=== PATIENT | female | born 1940 | race Caucasian/White ===

== ENCOUNTER 2016-09-12 14:59 | Observation (INO) | payer MEDICARE, OTHER ==
[~2016-09-12] VITALS: Ht 165.1 cm; Wt 80.0 kg
[~2016-09-12 14:59] MED LIST: ACET120S PO; AMLO5TAB2 PO; ASPI-110 PO; CALC1TAB26 PO; CELE200C PO; FAMO20TA2 PO; LOSA50TA PO; METO25TA3 PO; MIRA25TA PO; MULTTAB25 PO; OMEG5CAP PO; PREV30CA11 PO; RED600TA PO; TRIAM.1%T TOPICAL; ZYRT10CA PO; [UNRECOGNIZED DRUG - CODE] TOPICAL
[2016-09-12 15:01] VITALS: BP 152/66; PULSE 67; RESP 15; TEMP 98.4; O2SAT 97
[2016-09-12] MEDS ORDERED: VANCOMYCIN INJ 1,000 MG in SODIUM CHLOR 0.9% 250 ML INJ 250 ML IV STA (16:27)
[2016-09-12] MEDS ORDERED: CLINDAMYCIN INJ 900 MG in SODIUM CHLORIDE 0.9% INJ 100 ML IV STA (16:27)
[2016-09-12 16:54] VITALS: O2SAT 98
[2016-09-12 17:06] LABS: AUTOMATED NEUTROPHIL # 7.3 TH/MM3 (1.8-7.7); BASOPHIL % 0.4 % (0.0-2.0); EOSINOPHIL # 0.9 TH/MM3 (0-0.4); EOSINOPHIL % 7.7 % (0.0-4.0); HEMATOCRIT 35.9 % (35.0-46.0); HEMO FLAGS DIFF FINAL; LYMPH % 17.5 % (9.0-44.0); MEAN CELL VOLUME 100.1 FL (80.0-100.0); MEAN CORPUSCULAR HEMOGLOBIN 32.6 PG (27.0-34.0); MEAN CORPUSCULAR HGB CONC 32.5 % (32.0-36.0); MONO % 10.6 % (0.0-8.0); NEUT % 63.8 % (16.0-70.0); PLATELET COUNT 235 TH/MM3 (150-450); RED BLOOD COUNT 3.59 MIL/MM3 (4.00-5.30); WHITE BLOOD COUNT 11.4 TH/MM3 (4.0-11.0)
[2016-09-12 17:20] LABS: BLOOD, URINE NEG (NEG); GLUCOSE,URINE NEG (NEG); HYALINE CAST, URINE 2 /lpf (RARE); KETONE, URINE NEG (NEG); NITRITE,URINE NEG (NEG); SQUAMOUS EPITHELIAL CELL URINE <1 /hpf (0-5); URINE COLOR YELLOW (YELLW/STRAW)
[2016-09-12 17:28] LABS: COMMENT (UR) CATH-CULT NOT IND; CULTURE IF INDICATED CATH CULTURE NOT IND
[2016-09-12 17:35] LABS: ALKALINE PHOSPHATASE 63 U/L (45-117); ALT (GPT) 21 U/L (10-53); ANION GAP 7 MEQ/L (5-15); AST (GOT) 32 U/L (15-37); BLOOD UREA NITROGEN 19 MG/DL (7-18); CHLORIDE 99 MEQ/L (98-107); GLOMERULAR FILTRATION RATE 40 ML/MIN (>89); SODIUM (NA) 131 MEQ/L (136-145); TOTAL BILIRUBIN ADULT 0.5 MG/DL (0.2-1.0)
--- NOTE | 2016-09-12 17:42 | PD ---
HPI Chief Complaint: Bite or Sting Time Seen by Provider: 16:00 Travel History International Travel<30 days: No Contact w/Intl Traveler<30days: No Traveled to known affect area: No History of Present Illness HPI Patient is a 76-year-old female presenting to the emergency department for evaluation of left hand infection after being bitten by her cat on Friday. Patient states after the cat bit her she was bleeding, she did wash out the wound however since Friday over the last 48 hours. Her hand has more erythematous, edematous and tender to the touch. Old her primary doctor who told her to come to the emergency department for further evaluation. Patient denies any fever, chills, nausea, vomiting, headache, shortness of breath, abdominal pain. Cat is up-to-date with immunizations. Patient's past medical history significant for hypertension, a flutter, ataxia, hydrocephalus. PFSH Past Medical History Arthritis: Yes Blood Disorders: No Anxiety: No Depression: No Heart Rhythm Problems: Yes (atrial flutter) Cancer: No Cardiovascular Problems: Yes (DVT) High Cholesterol: Yes Diminished Hearing: No Endocrine: No GERD: Yes Genitourinary: Yes Headaches: Yes Hypertension: Yes Immune Disorder: No Implanted Vascular Access Dvce: No Musculoskeletal: Yes Neurologic: No Psychiatric: No Reproductive: No Respiratory: No Immunizations Current: No Tetanus Vaccination: < 5 Years Menopausal: Yes Past Surgical History Endocrine Surgery: Yes Genitourinary Surgery: Yes Oral Surgery: Yes (T & A) Other Surgery: Yes (BILAT HAND CARPAL TUNNEL) Social History Alcohol Use: Yes (3 glasses of wine a day) Tobacco Use: No Substance Use: No Allergies-Medications (Allergen,Severity, Reaction): Coded Allergies: Bactrim (Verified Allergy, Severe, CENTRAL NERVOUS SYSTEM REACTION, ) Penicillin (Verified Allergy, Severe, Rash, 09/12/16) Tetracycline (Verified Allergy, Severe, DIARRHHEA,FEVER,VOMITING, 09/12/16) Vasotec (Verified Allergy, Intermediate, Cough, 09/12/16) has cough with Lisinopril as well ( ACEI) Reported Meds & Prescriptions Reported Meds & Active Scripts Active Reported Clobex Topical (Clobetasol Propionate) 0.05% Lotn 1 Applic TOPICAL BID PRN Triamcinolone Topical (Triamcinolone Acetonide) 0.1 % Oint 1 Applic TOPICAL DAILY PRN Calcium 600/Vitamin D3 (Calcium Carbonate-Cholecalciferol) 600-800 Mg-Unit Tab 1 Tab PO BID Multi For Her 50+ (Multiple Vitamins W/ Minerals) 1 Tab Tab 1 Tab PO DAILY Prevacid (Lansoprazole) 30 Mg Capdr 30 Mg PO DAILY Celebrex (Celecoxib) 200 Mg Cap 200 Mg PO DAILY Metoprolol Tartrate 25 Mg Tab 25 Mg PO BID Zyrtec Allergy (Cetirizine HCl) 10 Mg Cap 10 Mg PO DAILY PRN Fish Oil 1200 mg ([place]-3 Fatty Acids) 1 Cap Cap 1,200 Mg PO BID Take with meals Red Yeast Rice (Red Yeast Rice Extract) 600 Mg Tab 1,200 Mg PO BID Take with meals Aspirin 81 (Aspirin) 81 Mg Tabdr 81 Mg PO DAILY Losartan (Losartan Potassium) 50 Mg Tab 25 Mg PO BID Review of Systems Except as stated in HPI: all other systems reviewed are Neg General / Constitutional: No: Fever, Chills HENT: No: Headaches Respiratory: No: Shortness of Breath Gastrointestinal: No: Nausea, Abdominal Pain Musculoskeletal: Positive: Myalgias, Edema Skin: Positive Change in Pigmentation Physical Exam Narrative GENERAL: Developed, well-nourished, alert elderly female. Resting comfortably in no acute distress. SKIN: Focused skin assessment warm/dry. Erythema and mild edema noted to the dorsal aspect of the left hand extending proximal to the left wrist. Positive radial pulse, brisk less than 3 second capillary refill. Mildly tender to palpation. HEAD: Atraumatic. Normocephalic. EYES: Pupils equal and round. No scleral icterus. No injection or drainage. ENT: No nasal bleeding or discharge. Mucous membranes pink and moist. NECK: Trachea midline. No JVD. CARDIOVASCULAR: Regular rate and rhythm. No murmur appreciated. RESPIRATORY: No accessory muscle use. Clear to auscultation. Breath sounds equal bilaterally. GASTROINTESTINAL: Abdomen soft, non-tender, nondistended. Hepatic and splenic margins not palpable. MUSCULOSKELETAL: No obvious deformities. No clubbing. No cyanosis. 5/5 paper spooler strength in bilateral upper extremities. No pain with passive extension of fingers on left hand NEUROLOGICAL: Awake and alert. No obvious cranial nerve deficits. Motor grossly within normal limits. Normal speech. PSYCHIATRIC: Appropriate mood and affect; insight and judgment normal. Data Data Last Documented VS Vital Signs Date Time Temp Pulse Resp B/P Pulse Ox O2 Delivery O2 Flow Rate FiO2 09/12/16 18:51 63 16 188/81 98 Room Air 09/12/16 15:01 98.4 Orders Complete Blood Count With Diff (09/12/16 16:27) Comprehensive Metabolic Panel (09/12/16 16:27) Lactic Acid Sepsis Protocol (09/12/16 16:27) Urinalysis - C+S If Indicated (09/12/16 16:27) Blood Culture (09/12/16 16:27) Blood Glucose (09/12/16 16:27) Ecg Monitoring (09/12/16 16:27) Iv Access Insert/Monitor (09/12/16 16:27) Oximetry (09/12/16 16:27) Oxygen Administration (09/12/16 16:27) Clindamycin Inj (Cleocin Inj) (09/12/16 16:27) Vancomycin Inj (Vancomycin Inj) (09/12/16 16:27) Hand, Complete (Yln2wia) (09/12/16 ) Admit Order (Ed Use Only) (09/12/16 19:07) Labs Laboratory Tests Test 09/12/16 09/12/16 16:45 16:52 White Blood Count 11.4 TH/MM3 Red Blood Count 3.59 MIL/MM3 Hemoglobin 11.7 GM/DL Hematocrit 35.9 % Mean Corpuscular Volume 100.1 FL Mean Corpuscular Hemoglobin 32.6 PG Mean Corpuscular Hemoglobin 32.5 % Concent Red Cell Distribution Width 13.0 % Platelet Count 235 TH/MM3 Mean Platelet Volume 8.7 FL Neutrophils (%) (Auto) 63.8 % Lymphocytes (%) (Auto) 17.5 % Monocytes (%) (Auto) 10.6 % Eosinophils (%) (Auto) 7.7 % Basophils (%) (Auto) 0.4 % Neutrophils # (Auto) 7.3 TH/MM3 Lymphocytes # (Auto) 2.0 TH/MM3 Monocytes # (Auto) 1.2 TH/MM3 Eosinophils # (Auto) 0.9 TH/MM3 Basophils # (Auto) 0.0 TH/MM3 CBC Comment DIFF FINAL Differential Comment Sodium Level 131 MEQ/L Potassium Level 5.0 MEQ/L Chloride Level 99 MEQ/L Carbon Dioxide Level 25.0 MEQ/L Anion Gap 7 MEQ/L Blood Urea Nitrogen 19 MG/DL Creatinine 1.28 MG/DL Estimat Glomerular Filtration 40 ML/MIN Rate Random Glucose 97 MG/DL Lactic Acid Level 0.7 mmol/L Calcium Level 9.7 MG/DL Total Bilirubin 0.5 MG/DL Aspartate Amino Transf 32 U/L (AST/SGOT) Alanine Aminotransferase 21 U/L (ALT/SGPT) Alkaline Phosphatase 63 U/L Total Protein 7.6 GM/DL Albumin 3.7 GM/DL Urine Color YELLOW Urine Turbidity CLEAR Urine pH 6.0 Urine Specific [place] 1.013 Urine Protein NEG mg/dL Urine Glucose (UA) NEG mg/dL Urine Ketones NEG mg/dL Urine Occult Blood NEG Urine Nitrite NEG Urine Bilirubin NEG Urine Urobilinogen LESS THAN 2.0 MG/DL Urine Leukocyte Esterase NEG Urine RBC LESS THAN 1 /hpf Urine WBC LESS THAN 1 /hpf Urine Squamous Epithelial <1 /hpf Cells Urine Hyaline Casts 2 /lpf Microscopic Urinalysis Comment CATH-CULT NOT IND MDM Medical Decision Making Medical Screen Exam Complete: Yes Emergency Medical Condition: Yes Interpretation(s) Laboratory Tests Test 09/12/16 09/12/16 16:45 16:52 White Blood Count 11.4 TH/MM3 Red Blood Count 3.59 MIL/MM3 Hemoglobin 11.7 GM/DL Hematocrit 35.9 % Mean Corpuscular Volume 100.1 FL Mean Corpuscular Hemoglobin 32.6 PG Mean Corpuscular Hemoglobin 32.5 % Concent Red Cell Distribution Width 13.0 % Platelet Count 235 TH/MM3 Mean Platelet Volume 8.7 FL Neutrophils (%) (Auto) 63.8 % Lymphocytes (%) (Auto) 17.5 % Monocytes (%) (Auto) 10.6 % Eosinophils (%) (Auto) 7.7 % Basophils (%) (Auto) 0.4 % Neutrophils # (Auto) 7.3 TH/MM3 Lymphocytes # (Auto) 2.0 TH/MM3 Monocytes # (Auto) 1.2 TH/MM3 Eosinophils # (Auto) 0.9 TH/MM3 Basophils # (Auto) 0.0 TH/MM3 CBC Comment DIFF FINAL Differential Comment Sodium Level 131 MEQ/L Potassium Level 5.0 MEQ/L Chloride Level 99 MEQ/L Carbon Dioxide Level 25.0 MEQ/L Anion Gap 7 MEQ/L Blood Urea Nitrogen 19 MG/DL Creatinine 1.28 MG/DL Estimat Glomerular Filtration 40 ML/MIN Rate Random Glucose 97 MG/DL Lactic Acid Level 0.7 mmol/L Calcium Level 9.7 MG/DL Total Bilirubin 0.5 MG/DL Aspartate Amino Transf 32 U/L (AST/SGOT) Alanine Aminotransferase 21 U/L (ALT/SGPT) Alkaline Phosphatase 63 U/L Total Protein 7.6 GM/DL Albumin 3.7 GM/DL Urine Color YELLOW Urine Turbidity CLEAR Urine pH 6.0 Urine Specific Benedict 1.013 Urine Protein NEG mg/dL Urine Glucose (UA) NEG mg/dL Urine Ketones NEG mg/dL Urine Occult Blood NEG Urine Nitrite NEG Urine Bilirubin NEG Urine Urobilinogen LESS THAN 2.0 MG/DL Urine Leukocyte Esterase NEG Urine RBC LESS THAN 1 /hpf Urine WBC LESS THAN 1 /hpf Urine Squamous Epithelial <1 /hpf Cells Urine Hyaline Casts 2 /lpf Microscopic Urinalysis Comment CATH-CULT NOT IND Vital Signs Date Time Temp Pulse Resp B/P Pulse Ox O2 Delivery O2 Flow Rate FiO2 09/12/16 16:54 98 Room Air 09/12/16 16:54 98 Room Air 09/12/16 15:01 98.4 67 15 152/66 97 Differential Diagnosis Osteomyelitis versus cellulitis versus sepsis versus other Narrative Course Patient is a 76-year-old female presenting to emergency department for evaluation of cat bite left hand. Patient was bit on Friday since that time she's had increasing redness and mild edema to the dorsal aspect of her left hand. She was advised by her primary doctor to come to emergency department for evaluation. On exam patient is mildly tender, she is neurovascularly intact. Imaging shows no acute bony abnormality. CBC shows a slightly elevated white count just over 11, with a mildly elevated BUN/creatinine 19/1.28 , sodium 131, lactic acid 0.7, urinalysis is unremarkable. Blood cultures drawn and pending. Patient was given clindamycin and lincomycin IV in the emergency department. She is agreeable to stay in the hospital for IV antibiotics. Discussed with Dr. Pederson who accepted admission, patient be placed in observation status. Diagnosis Primary Impression: Cellulitis Qualified Code: L03.114 - Cellulitis of left upper extremity Additional Impressions: Cat bite of hand Qualified Code: S61.452A - Cat bite of hand, left, initial encounter Acute renal insufficiency Admitting Information Admitting Physician Requests: Observation Condition: Stable Catia KimP Sep 12, 2016 17:42
--- NOTE | 2016-09-12 18:17 | RADRPT ---
EXAM DATE/TIME: 09/12/2016 17:45 [facility] COMPARISON: No previous studies available for comparison. INDICATIONS : Pain, swelling and puncture wound left posterior pain, cat bite MEDICAL HISTORY : None. SURGICAL HISTORY : None. ENCOUNTER: Initial ACUITY: 3 days PAIN SCORE: 6/10 LOCATION: Left Hand FINDINGS: No definite fractures, or dislocations are identified. No definite lytic or sclerotic lesion is seen . Slight degenerative arthritis is present within multiple interphalangeal joints and first carpometa carpal joint. There is no evidence for a radiopaque foreign body for technique. CONCLUSION: No definite fracture is seen for technique. Massiel Reyes MD on September 12, 2016 at 18:14 Board Certified Radiologist. This report was verified electronically.
[2016-09-12 18:51] VITALS: BP 188/81; PULSE 63; RESP 16; O2SAT 98
[2016-09-12 19:29] VITALS: BP 178/74; PULSE 59; RESP 20; O2SAT 99
[2016-09-12] MEDS ORDERED: ONDANSETRON HCL 4 MG/2 ML VIAL IVP PRN (19:45)
[2016-09-12] MEDS ORDERED: NALOXONE HCL 0.4 MG/ML AMP IV PRN (19:45)
[2016-09-12] MEDS ORDERED: SODIUM CHLORIDE 0.9% FLUSH 10 ML FLUSH IV FLUSH PRN (19:45)
[2016-09-12] MEDS ORDERED: LEVOFLOXACIN 500 MG PREMIX INJ 100 ML IV ONE (20:00)
[2016-09-12] MEDS: metroNIDAZOLE 500 MG INJ 100 ML IV SCH (21:37)
[2016-09-12] MEDS: SODIUM CHLORIDE 0.9% FLUSH 10 ML FLUSH IV FLUSH SCH (21:37)
[2016-09-12 21:55] VITALS: BP 139/60; PULSE 68; RESP 19; TEMP 98.1; O2SAT 99
--- NOTE | 2016-09-12 23:24 | HHI.HP ---
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 Patient reports her cat bite her right hand Friday night. Patient reports at first the bite area looked as though it was healing until yesterday when the wound looked as though it was starting to open up, became erythematous and started hurting. Patient describes pain as a mild ache located in the L hand only. Erythema located on the right hand and 4 inches on right upper extremity, forearm. Patient reports she tried topical ointment at home with no relief. Patient then called PCP and was instructed to go to ER for further evaluation and treatment. Patient received vancomycin as well as clindamycin and emergency department. Patient is also been started on Levaquin and Flagyl as patient is allergic to penicillin and tetracycline. Patient reports after the antibiotics the edema seems to have improved with erythema is about the same. Right hand remains tender to light palpation. Patient denies fevers, chills, N/V/D, chest pain or SOB. Review of Systems Except as stated in HPI: all other systems reviewed are Neg Past Family Social History Past Medical History HTN, BLE Venous insufficiency femoral artery blockage Atrial fib/flutter - psych coordinator: Dr. Lobo Stoll lower extremity DVT (20 years ago) - while taking Premarin cerebellar ataxia followed by Dr. 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 Reported Medications Clobex Topical (Clobetasol Propionate) 0.05% Lotn 1 Applic TOPICAL BID PRN Triamcinolone Topical (Triamcinolone Acetonide) 0.1 % Oint 1 Applic TOPICAL DAILY PRN Calcium 600/Vitamin D3 (Calcium Carbonate-Cholecalciferol) 600-800 Mg-Unit Tab 1 Tab PO BID Multi For Her 50+ (Multiple Vitamins W/ Minerals) 1 Tab Tab 1 Tab PO DAILY Prevacid (Lansoprazole) 30 Mg Capdr 30 Mg PO DAILY Celebrex (Celecoxib) 200 Mg Cap 200 Mg PO DAILY Metoprolol Tartrate 25 Mg Tab 25 Mg PO BID Zyrtec Allergy (Cetirizine HCl) 10 Mg Cap 10 Mg PO DAILY PRN Fish Oil 1200 mg ([place]-3 Fatty Acids) 1 Cap Cap 1,200 Mg PO BID Take with meals Red Yeast Rice (Red Yeast Rice Extract) 600 Mg Tab 1,200 Mg PO BID Take with meals Aspirin 81 (Aspirin) 81 Mg Tabdr 81 Mg PO DAILY Losartan (Losartan Potassium) 50 Mg Tab 25 Mg PO BID Allergies: Coded Allergies: Bactrim (Verified Allergy, Severe, CENTRAL NERVOUS SYSTEM REACTION, ) Penicillin (Verified Allergy, Severe, Rash, 09/12/16) Tetracycline (Verified Allergy, Severe, DIARRHHEA,FEVER,VOMITING, 09/12/16) Vasotec (Verified Allergy, Intermediate, Cough, 09/12/16) has cough with Lisinopril as well ( ACEI) Active Ordered Medications Current Medications Medications (Trade) Dose Ordered Sig/Aydee Route Start Time Stop Time Status Last Admin (NS Flush) 2 ml UNSCH PRN IV FLUSH 09/12/16 19:45 (NS Flush) 2 ml BID IV FLUSH 09/12/16 21:00 09/12/16 21:37 (Zofran Inj) 4 mg Q6H PRN IVP 09/12/16 19:45 Naloxone HCl 0.4 mg 0.4 mg UNSCH PRN IV 09/12/16 19:45 Metronidazole 100 ml @ 100 mls/hr Q8H IV 09/12/16 20:00 09/12/16 21:37 (Levaquin 250 Mg Premix Inj) 50 ml @ 50 mls/hr Q24H IV 09/13/16 20:00 Family History cancer in father. Social History Lives alone continues to drive Quit tobacco use 1976 drinks 1-2 glasses of wine per day Physical Exam Vital Signs Vital Signs Date Time Temp Pulse Resp B/P Pulse Ox O2 Delivery O2 Flow Rate FiO2 09/12/16 21:55 98.1 68 19 139/60 99 09/12/16 19:29 59 20 178/74 99 Room Air 09/12/16 18:51 63 16 188/81 98 Room Air 09/12/16 16:54 98 Room Air 09/12/16 16:54 98 Room Air 09/12/16 15:01 98.4 67 15 152/66 97 Physical Exam GENERAL: This is a well-nourished, well-developed patient, in no apparent distress. SKIN: No rashes, ecchymoses or lesions. Cool and dry. HEAD: Atraumatic. Normocephalic. No temporal or scalp tenderness. EYES: Pupils equal round and reactive. Extraocular motions intact. No scleral icterus. No injection or drainage. ENT: Nose without bleeding, purulent drainage or septal hematoma. Throat without erythema, tonsillar hypertrophy or exudate. Uvula midline. Airway patent. NECK: Trachea midline. No JVD or lymphadenopathy. Supple, nontender, no meningeal signs. CARDIOVASCULAR: Regular rate and rhythm without murmurs, gallops, or rubs. RESPIRATORY: Clear to auscultation. Breath sounds equal bilaterally. No wheezes , rales, or rhonchi. GASTROINTESTINAL: Abdomen soft, non-tender, nondistended. No hepato-splenomegaly , or palpable masses. No guarding. MUSCULOSKELETAL: Extremities without clubbing, cyanosis, or edema. No joint tenderness, effusion, or edema noted. No calf tenderness. Negative Homans sign bilaterally. NEUROLOGICAL: Awake and alert. Cranial nerves II through XII intact. Motor and sensory grossly within normal limits. Five out of 5 muscle strength in all muscle groups. Normal speech. Laboratory Laboratory Tests Test 09/12/16 09/12/16 16:45 16:52 White Blood Count 11.4 Red Blood Count 3.59 Hemoglobin 11.7 Hematocrit 35.9 Mean Corpuscular Volume 100.1 Mean Corpuscular Hemoglobin 32.6 Mean Corpuscular Hemoglobin 32.5 Concent Red Cell Distribution Width 13.0 Platelet Count 235 Mean Platelet Volume 8.7 Neutrophils (%) (Auto) 63.8 Lymphocytes (%) (Auto) 17.5 Monocytes (%) (Auto) 10.6 Eosinophils (%) (Auto) 7.7 Basophils (%) (Auto) 0.4 Neutrophils # (Auto) 7.3 Lymphocytes # (Auto) 2.0 Monocytes # (Auto) 1.2 Eosinophils # (Auto) 0.9 Basophils # (Auto) 0.0 CBC Comment DIFF FINAL Differential Comment Sodium Level 131 Potassium Level 5.0 Chloride Level 99 Carbon Dioxide Level 25.0 Anion Gap 7 Blood Urea Nitrogen 19 Creatinine 1.28 Estimat Glomerular Filtration 40 Rate Random Glucose 97 Lactic Acid Level 0.7 Calcium Level 9.7 Total Bilirubin 0.5 Aspartate Amino Transf 32 (AST/SGOT) Alanine Aminotransferase 21 (ALT/SGPT) Alkaline Phosphatase 63 Total Protein 7.6 Albumin 3.7 Urine Color YELLOW Urine Turbidity CLEAR Urine pH 6.0 Urine Specific [place] 1.013 Urine Protein NEG Urine Glucose (UA) NEG Urine Ketones NEG Urine Occult Blood NEG Urine Nitrite NEG Urine Bilirubin NEG Urine Urobilinogen LESS THAN 2.0 Urine Leukocyte Esterase NEG Urine RBC LESS THAN 1 Urine WBC LESS THAN 1 Urine Squamous Epithelial <1 Cells Urine Hyaline Casts 2 Microscopic Urinalysis Comment CATH-CULT NOT IND Date/Time Procedure Status Source Growth 09/12/16 16:45 Aerobic Blood Culture Received Blood Peripheral Pending 09/12/16 16:45 Anaerobic Blood Culture Received Blood Peripheral Pending Result Diagram: 09/12/16 1645 09/12/16 1645 Imaging Last Impressions Hand X-Ray 09/12/16 0000 Signed Impressions: Service Date/Time: , September 12, 2016 17:45 - CONCLUSION: No definite fracture is seen for technique. Massiel Reyes MD Assessment and Plan Assessment and Plan This a pleasant 76-year-old female patient with past medical history which could hypertension, atrial fibrillation/flutter, bilateral venous insufficiency femoral artery blockage, right lower extremity DVT 20 years ago while taking Premarin and cerebellar ataxia. Patient reports her cat bite her right hand Friday night. Patient reports at first the bite area looked as though it was healing until yesterday when the wound looked as though it was starting to open up, became erythematous and started hurting. Patient describes pain as a mild ache located in the L hand only. Erythema located on the right hand and 4 inches on right upper extremity, forearm. R hand Cellulitis secondary to Cat bite- concern for Pasteurella Wound cultured Given vancomycin and clindamycin in emergency department Started patient on Levaquin and Flagyl she is allergic to penicillin and tetracycline consult hand surgery Left hand x-ray reviewed findings no definite fractures or dislocations are identified. No definite lytic or sclerotic lesion is seen. Slight degenerative arthritis is present within multiple interphalangeal joints at first carpometacarpal joint. There is no evidence for a radiopaque foreign body for technique. cerebellar ataxia continue to follow with Dr. [place] as outpatient fall precautions OOB with assistance Other chronic stable medical condition include HTN, Atrial Fibrillation/flutter continue home medications DVT prophylaxis with SCDs at this time as patient has possible I&D Discussed with ER provider, nursing and patient Written by Sandra Baker, acting as scribe for Dr. Pederson on 09/12/16 at 23: 39. Sandra Baker Sep 12, 2016 23:24
[2016-09-13] MEDS: metroNIDAZOLE 500 MG INJ 100 ML IV SCH ×2 (04:11→12:16)
[2016-09-13 04:29] VITALS: BP 159/69; PULSE 57; RESP 19; TEMP 98.1; O2SAT 95
[2016-09-13 05:53] LABS: AUTOMATED NEUTROPHIL # 4.7 TH/MM3 (1.8-7.7); BASOPHIL # 0.1 TH/MM3 (0-0.2); BASOPHIL % 0.7 % (0.0-2.0); EOSINOPHIL # 1.3 TH/MM3 (0-0.4); EOSINOPHIL % 12.7 % (0.0-4.0); HEMO FLAGS DIFF FINAL; LYMPH % 25.3 % (9.0-44.0); LYMPHOCYTE # 2.5 TH/MM3 (1.0-4.8); MEAN CELL VOLUME 98.4 FL (80.0-100.0); MEAN CORPUSCULAR HEMOGLOBIN 33.3 PG (27.0-34.0); MEAN CORPUSCULAR HGB CONC 33.9 % (32.0-36.0); MONO % 14.8 % (0.0-8.0); NEUT % 46.5 % (16.0-70.0); PLATELET COUNT 230 TH/MM3 (150-450); RED BLOOD COUNT 3.15 MIL/MM3 (4.00-5.30); RED CELL DISTRIBUTION WIDTH 12.9 % (11.6-17.2)
[2016-09-13 06:23] LABS: BICARBONATE 25.8 MEQ/L (21.0-32.0); POTASSIUM 3.9 MEQ/L (3.5-5.1)
[2016-09-13] MEDS: PANTOPRAZOLE SOD 40 MG DELAYED RELEASE TAB PO SCH (08:13)
[2016-09-13] MEDS: LOSARTAN 50 MG TAB PO SCH ×2 (08:13→22:09)
[2016-09-13] MEDS: SODIUM CHLORIDE 0.9% FLUSH 10 ML FLUSH IV FLUSH SCH ×2 (08:14→22:08)
[2016-09-13] MEDS: ASPIRIN 81 MG CHEW TAB PO SCH (08:14)
[2016-09-13] MEDS: METOPROLOL TARTRATE 25 MG TAB PO SCH ×2 (08:14→22:08)
[2016-09-13] MEDS: CELECOXIB 200 MG CAP PO SCH (08:17)
--- NOTE | 2016-09-13 08:47 | HHI.PR ---
Subjective Remarks Follow up for left hand cellulitis secondary to cat bite. The patient reports her left hand erythema and edema has improved overnight however it has now become slightly more painful. She still has full range of motion of the hand. Denies fevers or chills. She reports she was evaluated by hand surgeon this morning who recommended no surgery but would like her to stay for another day of IV antibiotics. Objective Vitals Vital Signs Date Time Temp Pulse Resp B/P Pulse Ox O2 Delivery O2 Flow Rate FiO2 09/13/16 04:29 98.1 57 19 159/69 95 09/12/16 21:55 98.1 68 19 139/60 99 09/12/16 19:29 59 20 178/74 99 Room Air 09/12/16 18:51 63 16 188/81 98 Room Air 09/12/16 16:54 98 Room Air 09/12/16 16:54 98 Room Air 09/12/16 15:01 98.4 67 15 152/66 97 I/O 09/12/16 09/12/16 09/12/16 09/13/16 09/13/16 09/13/16 07:00 15:00 23:00 07:00 15:00 23:00 Intake Total 120 ml Balance 120 ml Intake Oral 120 ml Result Diagram: 09/13/16 0458 09/13/16 0458 Imaging Last Impressions Hand X-Ray 09/12/16 0000 Signed Impressions: Service Date/Time: August 17:45 - CONCLUSION: No definite fracture is seen for technique. K. Barry Reyes MD Objective Remarks GENERAL: Well-nourished, well-developed elderly female patient in [facility]. SKIN: Warm and dry. Left dorsal hand with mild erythema and edema extending from the hand up to the wrist, improving. HEENT: Normocephalic. Atraumatic.Pupils equal and round. Mucous membranes pink and moist. NECK: Supple. Trachea midline. CARDIOVASCULAR: Regular rate and rhythm. S1, S2 noted. No murmur appreciated. RESPIRATORY: No accessory muscle use. Clear to auscultation. Breath sounds equal bilaterally. GASTROINTESTINAL: Abdomen soft, non-tender, nondistended. Normoactive bowel sounds x4. MUSCULOSKELETAL: No obvious deformities. Extremities without clubbing, cyanosis , or edema. NEUROLOGICAL: Awake and alert. No obvious cranial nerve deficits. Motor grossly within normal limits. Normal speech. PSYCHIATRIC: Appropriate mood and affect; insight and judgment normal. Medications and IVs Current Medications Medications (Trade) Dose Ordered Sig/Yadee Route Start Time Stop Time Status Last Admin (NS Flush) 2 ml UNSCH PRN IV FLUSH 09/12/16 19:45 (NS Flush) 2 ml BID IV FLUSH 09/12/16 21:00 09/13/16 08:14 (Zofran Inj) 4 mg Q6H PRN IVP 09/12/16 19:45 Naloxone HCl 0.4 mg 0.4 mg UNSCH PRN IV 09/12/16 19:45 Metronidazole 100 ml @ 100 mls/hr Q8H IV 09/12/16 20:00 09/13/16 04:11 (Levaquin 250 Mg Premix Inj) 50 ml @ 50 mls/hr Q24H IV 09/13/16 20:00 (CeleBREX) 200 mg DAILY PO 09/13/16 09:00 (Cozaar) 25 mg BID PO 09/13/16 09:00 09/13/16 08:13 (Lopressor) 25 mg BID PO 09/13/16 09:00 09/13/16 08:14 (Aspirin Chew) 81 mg DAILY PO 09/13/16 09:00 09/13/16 08:14 (Protonix) 40 mg DAILY PO 09/13/16 09:00 09/13/16 08:13 A/P Assessment and Plan 76-year-old female patient with history of HTN, atrial fibrillation/flutter, bilateral venous insufficiency femoral artery blockage, RLE DVT 20 years ago while taking Premarin, and cerebellar ataxia; presents with cat bite to the left hand that occurred Saturday 09/09. L hand Cellulitis secondary to Cat bite- concern for Pasteurella infection. S/p Vanco/Clinda in the ED. Afebrile, WBC 11.4K. Left hand x-ray reviewed findings no definite fractures or dislocations are identified; no evidence for a radiopaque foreign body for technique. Wound culture pending Unable to give Unasyn as patient is allergic to penicillin, started on IV Levaquin and Flagyl Consult hand surgery, nonsurgical, recommends continuing IV antibiotics Cerebellar ataxia continue to follow with Dr. France as outpatient fall precautions OOB with assistance Other chronic stable medical condition include HTN, Atrial Fibrillation/flutter , continue home medications, added Norvasc 2.5mg daily for hypertension DVT prophylaxis with SCDs Written by Lisa Yang, acting as scribe for Dr. Pool on 09/13/16 at 10:35 This note was transcribed by scribe Lisa ARANDA. I, Dr. Padmini Pool personally performed the history, physical exam, and medical decision making; and confirmed the accuracy of the information in the transcribed note. Authenticated by Dr. Padmini Pool on 09/13/16 at 10:35 Lisa Yang PA-C Sep 13, 2016 08:46 Padmini Pool MD Sep 13, 2016 12:31
[2016-09-13] MEDS ORDERED: PILL SPLITTER OTHER PRN (11:45)
[2016-09-13] MEDS: amLODIPine BESYLATE 5 MG TAB PO SCH (12:16)
--- NOTE | 2016-09-13 13:32 | PD.ID.CON ---
History of Present Illness Service ID Consult Requested By Reason for Consult Evaluation and Mment of LUE cellulitis related to dog bite in patient with multiple allergies to antibiotics. Primary Care Physician Kala Thorne MD Diagnoses: History of Present Illness is a 76 y/o CF with PMHx of hypertension, atrial fibrillation/flutter , bilateral venous insufficiency femoral artery blockage, right lower extremity DVT 20 years ago while taking Premarin and cerebellar ataxia. Patient reports her cat bit her right hand Friday night. Patient reports her cat is playful and was not angry. Patient reports cat is immunized. Patient reports at first the bite area looked as though it was healing until yesterday when the wound looked as though it was starting to open up, became erythematous and started hurting. Patient describes pain as a mild ache located in the L hand only. Erythema located on the left hand and 4 inches on left upper extremity and forearm. Patient reports she tried topical ointment at home with no relief. Patient then called PCP and was instructed to go to ER for further evaluation and treatment. Patient received vancomycin as well as clindamycin and emergency department. Patient is also been started on Levaquin and Flagyl as patient is allergic to penicillin and tetracycline. Patient reports after the antibiotics the edema and erythema seems to have improved. Left hand remains tender to light palpation.Patient denies fevers, chills, N/V/D, chest pain or SOB. ID consulted for evaluation and Mment of Left hand cellulitis dorsum of hand. Review of Systems ROS Limitations: Poor Historian Constitutional: DENIES: Diaphoretic episodes, Fatigue, Fever, Weight gain, Weight loss, Chills, Dizziness, Change in appetite, Night Sweats Endocrine: DENIES: Abnorml menstrual pattern, Heat/cold intolerance, Polydipsia , Polyuria, Polyphagia Eyes: DENIES: Blurred vision, Diplopia, Eye inflammation, Eye pain, Vision loss , Photosensitivity, Double Vision Ears, nose, mouth, throat: DENIES: Tinnitus, Hearing loss, Vertigo, Nasal discharge, Oral lesions, Throat pain, Hoarseness, Ear Pain, Running Nose, Epistaxis, Sinus Pain, Toothache, Odynophagia Respiratory: DENIES: Apneas, Cough, Snoring, Wheezing, Hemoptysis, Sputum production, Shortness of breath Cardiovascular: DENIES: Chest pain, Palpitations, Syncope, Dyspnea on Exertion , PND, Lower Extremity Edema, Orthopnea, Claudication Gastrointestinal: DENIES: Abdominal pain, Black stools, Bloody stools, Constipation, Diarrhea, Nausea, Vomiting, Difficulty Swallowing, Anorexia Genitourinary: DENIES: Abnormal vaginal bleeding, Dysmenorrhea, Dyspareunia, Sexual dysfunction, Urinary frequency, Urinary incontinence, Urgency, Hematuria , Dysuria, Nocturia, Vaginal discharge Integumentary: COMPLAINS OF: Abnormal pigmentation Hematologic/lymphatic: DENIES: Bruising, Lymphadenopathy Immunologic/allergic: DENIES: Eczema, Urticaria Neurologic: DENIES: Abnormal gait, Headache, Localized weakness, Paresthesias, Seizures, Speech Problems, Tremor, Poor Balance Psychiatric: DENIES: Anxiety, Confusion, Mood changes, Depression, Hallucinations, Agitation, Suicidal Ideation, Homicidal Ideation, Delusions Past Family Social History Allergies: Coded Allergies: Bactrim (Verified Allergy, Severe, CENTRAL NERVOUS SYSTEM REACTION, ) Penicillin (Verified Allergy, Severe, Rash, 09/12/16) Tetracycline (Verified Allergy, Severe, DIARRHHEA,FEVER,VOMITING, 09/12/16) Vasotec (Verified Allergy, Intermediate, Cough, 09/12/16) has cough with Lisinopril as well ( ACEI) Past Medical History HTN, BLE Venous insufficiency femoral artery blockage 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 Lobo Stoll lower extremity DVT (20 years ago) - while taking Premarin cerebellar ataxia followed by Dr. 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 Reported Medications Reported Meds & Active Scripts Active Flagyl (Metronidazole) 500 Mg Tab 500 Mg PO Q8H Cipro (Ciprofloxacin HCl) 500 Mg Tab 500 Mg PO Q12HR Reported Clobex Topical (Clobetasol Propionate) 0.05% Lotn 1 Applic TOPICAL BID PRN Triamcinolone Topical (Triamcinolone Acetonide) 0.1 % Oint 1 Applic TOPICAL DAILY PRN Calcium 600/Vitamin D3 (Calcium Carbonate-Cholecalciferol) 600-800 Mg-Unit Tab 1 Tab PO BID Multi For Her 50+ (Multiple Vitamins W/ Minerals) 1 Tab Tab 1 Tab PO DAILY Prevacid (Lansoprazole) 30 Mg Capdr 30 Mg PO DAILY Celebrex (Celecoxib) 200 Mg Cap 200 Mg PO DAILY Metoprolol Tartrate 25 Mg Tab 25 Mg PO BID Zyrtec Allergy (Cetirizine HCl) 10 Mg Cap 10 Mg PO DAILY PRN Fish Oil 1200 mg ([place]-3 Fatty Acids) 1 Cap Cap 1,200 Mg PO BID Take with meals Red Yeast Rice (Red Yeast Rice Extract) 600 Mg Tab 1,200 Mg PO BID Take with meals Aspirin 81 (Aspirin) 81 Mg Tabdr 81 Mg PO DAILY Losartan (Losartan Potassium) 50 Mg Tab 25 Mg PO BID Active Ordered Medications Current Medications Medications (Trade) Dose Ordered Sig/Aydee Route Start Time Stop Time Status Last Admin (NS Flush) 2 ml UNSCH PRN IV FLUSH 09/12/16 19:45 (NS Flush) 2 ml BID IV FLUSH 09/12/16 21:00 09/13/16 08:14 (Zofran Inj) 4 mg Q6H PRN IVP 09/12/16 19:45 (Narcan Inj) 0.4 mg UNSCH PRN IV 09/12/16 19:45 (CeleBREX) 200 mg DAILY PO 09/13/16 09:00 (Cozaar) 25 mg BID PO 09/13/16 09:00 09/13/16 08:13 (Lopressor) 25 mg BID PO 09/13/16 09:00 09/13/16 08:14 (Aspirin Chew) 81 mg DAILY PO 09/13/16 09:00 09/13/16 08:14 (Protonix) 40 mg DAILY PO 09/13/16 09:00 09/13/16 08:13 (Norvasc) 2.5 mg DAILY PO 09/13/16 12:00 09/13/16 12:16 (Pill Splitter) 1 ea UNSCH PRN OTHER 09/13/16 11:45 (Cipro) 500 mg Q12HR PO 09/13/16 13:30 09/13/16 14:48 (Flagyl) 500 mg Q8H PO 09/13/16 13:30 09/13/16 14:48 Family History reviewed. Social History Lives at home. Has a cat reports she is playful. Physical Exam Vital Signs Vital Signs Date Time Temp Pulse Resp B/P Pulse Ox O2 Delivery O2 Flow Rate FiO2 09/13/16 04:29 98.1 57 19 159/69 95 09/12/16 21:55 98.1 68 19 139/60 99 09/12/16 19:29 59 20 178/74 99 Room Air 09/12/16 18:51 63 16 188/81 98 Room Air 09/12/16 16:54 98 Room Air 09/12/16 16:54 98 Room Air 09/12/16 15:01 98.4 67 15 152/66 97 Physical Exam GENERAL: This is a well-nourished, well-developed patient, in no apparent distress. SKIN: No rashes, ecchymoses or lesions. Cool and dry. HEAD: Atraumatic. Normocephalic. No temporal or scalp tenderness. EYES: Pupils equal round and reactive. Extraocular motions intact. No scleral icterus. No injection or drainage. ENT: Nose without bleeding, purulent drainage or septal hematoma. Throat without erythema, tonsillar hypertrophy or exudate. Uvula midline. Airway patent. NECK: Trachea midline. Supple, nontender, no meningeal signs. CARDIOVASCULAR: Regular rate and rhythm without murmurs, gallops, or rubs. RESPIRATORY: Clear to auscultation. Breath sounds equal bilaterally. GASTROINTESTINAL: Abdomen soft, non-tender, nondistended. MUSCULOSKELETAL: LUE dorsum of hand with mild erythema, teeth orr visible, minimal induration and tenderness. NEUROLOGICAL: Awake and alert. Grossly non focal Psych: cooperative IV line site with no e.o infection. Laboratory Laboratory Tests Test 09/12/16 09/12/16 09/13/16 16:45 16:52 04:58 White Blood Count 11.4 10.0 Red Blood Count 3.59 3.15 Hemoglobin 11.7 10.5 Hematocrit 35.9 31.0 Mean Corpuscular Volume 100.1 98.4 Mean Corpuscular Hemoglobin 32.6 33.3 Mean Corpuscular Hemoglobin 32.5 33.9 Concent Red Cell Distribution Width 13.0 12.9 Platelet Count 235 230 Mean Platelet Volume 8.7 9.2 Neutrophils (%) (Auto) 63.8 46.5 Lymphocytes (%) (Auto) 17.5 25.3 Monocytes (%) (Auto) 10.6 14.8 Eosinophils (%) (Auto) 7.7 12.7 Basophils (%) (Auto) 0.4 0.7 Neutrophils # (Auto) 7.3 4.7 Lymphocytes # (Auto) 2.0 2.5 Monocytes # (Auto) 1.2 1.5 Eosinophils # (Auto) 0.9 1.3 Basophils # (Auto) 0.0 0.1 CBC Comment DIFF FINAL DIFF FINAL Differential Comment Sodium Level 131 135 Potassium Level 5.0 3.9 Chloride Level 99 102 Carbon Dioxide Level 25.0 25.8 Anion Gap 7 7 Blood Urea Nitrogen 19 19 Creatinine 1.28 1.17 Estimat Glomerular Filtration 40 45 Rate Random Glucose 97 93 Lactic Acid Level 0.7 Calcium Level 9.7 8.9 Total Bilirubin 0.5 Aspartate Amino Transf 32 (AST/SGOT) Alanine Aminotransferase 21 (ALT/SGPT) Alkaline Phosphatase 63 Total Protein 7.6 Albumin 3.7 Urine Color YELLOW Urine Turbidity CLEAR Urine pH 6.0 Urine Specific [place] 1.013 Urine Protein NEG Urine Glucose (UA) NEG Urine Ketones NEG Urine Occult Blood NEG Urine Nitrite NEG Urine Bilirubin NEG Urine Urobilinogen LESS THAN 2.0 Urine Leukocyte Esterase NEG Urine RBC LESS THAN 1 Urine WBC LESS THAN 1 Urine Squamous Epithelial <1 Cells Urine Hyaline Casts 2 Microscopic Urinalysis Comment CATH-CULT NOT IND Erythrocyte Sedimentation Rate 21 C-Reactive Protein 0.38 Date/Time Procedure Status Source Growth 09/12/16 16:45 Aerobic Blood Culture - Preliminary Resulted Blood Peripheral NO GROWTH IN 1 DAY 09/12/16 16:45 Anaerobic Blood Culture - Preliminary Resulted Blood Peripheral NO GROWTH IN 1 DAY Result Diagram: 09/13/16 0458 09/13/16 0458 Imaging Last Impressions Hand X-Ray 09/12/16 0000 Signed Impressions: Service Date/Time: August 17:45 - CONCLUSION: No definite fracture is seen for technique. K. Barry Reyes MD Assessment and Plan Assessment and Plan LUE dorsum of hand cellulitis. Cat bite HTN uncontrolled. Elevated CRP Acute renal failure Recs DC IV Flagyl DC IV Levaquin DC IV Clinda Start Cipro 500 mg po bid for 10 days Start Flagyl 500 mg po tid for 10 days. Ilana De La Torre earlier in the day at time of medication change in EMR ok to DC from ID standpoint. Will sign off please call back if any change in clinical condition or questions. covering for me this weekend. Mahnaz Rainey MD Sep 13, 2016 13:31
[2016-09-13] MEDS ORDERED: METR-1 PO (14:29)
[2016-09-13] MEDS ORDERED: CIPR-9 PO (14:29)
--- NOTE | 2016-09-13 14:30 | HHI.DCPOC ---
Discharge Care Plan Diagnosis: (1) Cat bite of hand (2) Cellulitis Goals to Promote Your Health * To prevent worsening of your condition and complications * To maintain your health at the optimal level Directions to Meet Your Goals Take your medications as prescribed Follow your dietary instruction Follow activity as directed Keep your appointments as scheduled Take your immunizations and boosters as scheduled If your symptoms worsen call your PCP, if no PCP go to Urgent Care Center or Emergency Room Smoking is Dangerous to Your Health. Avoid second hand smoke Call the 24-hour hour crisis hotline for domestic abuse at Lisa Yang PA-C Sep 13, 2016 14:29 Padmini Pool MD Sep 13, 2016 19:09
[2016-09-13] MEDS: metroNIDAZOLE 500 MG TAB PO SCH ×2 (14:48→22:09)
[2016-09-13] MEDS: CIPROFLOXACIN 500 MG TAB PO SCH ×2 (14:48→22:08)
[2016-09-13 19:16] VITALS: BP 128/59; PULSE 73; RESP 19; TEMP 98.1; O2SAT 96
[2016-09-13] MEDS ORDERED: LEVOFLOXACIN/DEXTROSE 250 MG/50 ML IV SCH (20:00)
[2016-09-13 22:11] VITALS: PULSE 66
--- NOTE | 2016-09-13 23:03 | PD.ORT.PN ---
Subjective Subjective Remarks 76yF s/p cat bite 4 days ago admitted for pain and swelling left hand. Please see dictated consult note for full details. Patient reports improvement overnight on IV antibiotics. Objective Vitals Vital Signs Date Time Temp Pulse Resp B/P Pulse Ox O2 Delivery O2 Flow Rate FiO2 09/13/16 19:16 98.1 73 19 128/59 96 09/13/16 04:29 98.1 57 19 159/69 95 I/O 09/12/16 09/12/16 09/12/16 09/13/16 09/13/16 09/13/16 07:00 15:00 23:00 07:00 15:00 23:00 Intake Total 120 ml Balance 120 ml Intake Oral 120 ml Result Diagram: 09/13/16 0458 09/13/16 0458 Objective Remarks Mild erythema over cat bite, near full flexion/extension of fingers left hand, sitlt m/u/r, 2+ radial pulse. no evidence of fluctuance or abscess Assessment & Plan Assessment and Plan 76yF admitted 4 days after cat bite left hand, primary team requested hand surgery evaluation -Patient reports improvement on IV antibiotics -Treatment options discussed with patient. At this time I do not recommend urgent surgical intervention as no abscess or drainage but do recommend continued admission for IV antibiotics and close monitoring. Patient understands she may require surgical intervention if symptoms worsen. Ok for regular diet. -Elevate left hand, soaks left hand, will continue to follow. Dr Collazo to see this weekend and if patient discharged I will follow in office 09/16/16 Celine Mccann MD Sep 13, 2016 23:03
[2016-09-14 00:25] VITALS: BP 129/56; PULSE 58; RESP 18; TEMP 98.2; O2SAT 95
[2016-09-14 04:13] VITALS: BP 125/55; PULSE 55; RESP 19; TEMP 97.9; O2SAT 95
[2016-09-14] MEDS: metroNIDAZOLE 500 MG TAB PO SCH (05:49)
[2016-09-14 08:00] VITALS: BP 150/67; PULSE 52; PULSE 63; RESP 18; TEMP 98.5; O2SAT 98
[2016-09-14] MEDS: SODIUM CHLORIDE 0.9% FLUSH 10 ML FLUSH IV FLUSH SCH (09:10)
[2016-09-14] MEDS: CELECOXIB 200 MG CAP PO SCH (09:10)
[2016-09-14] MEDS: CIPROFLOXACIN 500 MG TAB PO SCH (09:10)
[2016-09-14] MEDS: amLODIPine BESYLATE 5 MG TAB PO SCH (09:10)
[2016-09-14] MEDS: ASPIRIN 81 MG CHEW TAB PO SCH (09:11)
[2016-09-14] MEDS: LOSARTAN 50 MG TAB PO SCH (09:11)
[2016-09-14] MEDS: PANTOPRAZOLE SOD 40 MG DELAYED RELEASE TAB PO SCH (09:11)
[2016-09-14] MEDS: METOPROLOL TARTRATE 25 MG TAB PO SCH (09:11)
--- NOTE | 2016-09-14 09:53 | HHI.PR ---
Subjective Remarks Follow up for left hand cellulitis/cat bite. The patient reports continued improvement of erythema/edema of the left hand. Denies fevers/chills. Pain well controlled. She wants to go home. She plans to follow up as outpatient with hand surgeon Dr. Mccann. She has no other medical complaints at this time. Objective Vitals Vital Signs Date Time Temp Pulse Resp B/P Pulse Ox O2 Delivery O2 Flow Rate FiO2 09/14/16 08:00 98.5 63 18 150/67 98 09/14/16 04:13 97.9 55 19 125/55 95 09/14/16 00:25 98.2 58 18 129/56 95 09/13/16 22:11 66 09/13/16 19:16 98.1 73 19 128/59 96 Result Diagram: 09/13/16 0458 09/13/16 0458 Imaging Last Impressions Hand X-Ray 09/12/16 0000 Signed Impressions: Service Date/Time: August 17:45 - CONCLUSION: No definite fracture is seen for technique. KLesly Reyes MD Objective Remarks GENERAL: Well-nourished, well-developed elderly female patient in [facility]. SKIN: Warm and dry. Left dorsal hand with small puncture wound and surrounding minimal erythema and edema extending from the hand up to the wrist, improving. HEENT: Normocephalic. Atraumatic.Pupils equal and round. Mucous membranes pink and moist. NECK: Supple. Trachea midline. CARDIOVASCULAR: Regular rate and rhythm. S1, S2 noted. No murmur appreciated. RESPIRATORY: No accessory muscle use. Clear to auscultation. Breath sounds equal bilaterally. GASTROINTESTINAL: Abdomen soft, non-tender, nondistended. Normoactive bowel sounds x4. MUSCULOSKELETAL: No obvious deformities. Extremities without clubbing, cyanosis , or edema. NEUROLOGICAL: Awake and alert. No obvious cranial nerve deficits. Motor grossly within normal limits. Normal speech. PSYCHIATRIC: Appropriate mood and affect; insight and judgment normal. Medications and IVs Current Medications Medications (Trade) Dose Ordered Sig/Aydee Route Start Time Stop Time Status Last Admin (NS Flush) 2 ml UNSCH PRN IV FLUSH 09/12/16 19:45 (NS Flush) 2 ml BID IV FLUSH 09/12/16 21:00 09/14/16 09:10 (Zofran Inj) 4 mg Q6H PRN IVP 09/12/16 19:45 (Narcan Inj) 0.4 mg UNSCH PRN IV 09/12/16 19:45 (CeleBREX) 200 mg DAILY PO 09/13/16 09:00 09/14/16 09:10 (Cozaar) 25 mg BID PO 09/13/16 09:00 09/14/16 09:11 (Lopressor) 25 mg BID PO 09/13/16 09:00 09/14/16 09:11 (Aspirin Chew) 81 mg DAILY PO 09/13/16 09:00 09/14/16 09:11 (Protonix) 40 mg DAILY PO 09/13/16 09:00 09/14/16 09:11 (Norvasc) 2.5 mg DAILY PO 09/13/16 12:00 09/14/16 09:10 (Pill Splitter) 1 ea UNSCH PRN OTHER 09/13/16 11:45 (Cipro) 500 mg Q12HR PO 09/13/16 13:30 09/14/16 09:10 (Flagyl) 500 mg Q8H PO 09/13/16 13:30 09/14/16 05:49 A/P Assessment and Plan 76-year-old female patient with history of HTN, atrial fibrillation/flutter, bilateral venous insufficiency femoral artery blockage, RLE DVT 20 years ago while taking Premarin, and cerebellar ataxia; presents with cat bite to the left hand that occurred Saturday 09/09. L hand Cellulitis secondary to Cat bite- concern for Pasteurella infection. S/p Vanco/Clinda in the ED. Afebrile, WBC 11.4K. Left hand x-ray reviewed findings no definite fractures or dislocations are identified; no evidence for a radiopaque foreign body for technique. Unable to collect wound culture with no drainage Unable to give Unasyn as patient is allergic to penicillin, started on IV Levaquin and Flagyl Consult hand surgery, nonsurgical, recommends continuing antibiotics overnight Cleared for discharge by ID and hand surgeon on po antibiotics Cipro/Flagyl [id number], f/up as outpatient on 09/[address] Mccann Cerebellar ataxia continue to follow with Dr. France as outpatient fall precautions OOB with assistance Other chronic stable medical condition include HTN, Atrial Fibrillation/flutter , continue home medications. DVT prophylaxis with SCDs Written by Lisa Yang, acting as scribe for Dr. Mejia on 09/14/16 at 09:50 This note was transcribed by scribe [Lisa Yang]. I, Dr. Jordon Mejia personally performed the history, physical exam, and medical decision making; and confirmed the accuracy of the information in the transcribed note. Authenticated by Dr. Jordon Mejia on 09/16/16 at 08:23. Discharge Planning Discharge patient to home Condition on discharge: Improved Heart Healthy Diet as tolerated Ad Sienna activity, elevate the left hand Rx written: Cipro and Flagyl [id number], Protonix, Florastor Follow-up with primary care physician Dr. Thorne in 1 week, and hand surgeon Dr. Mccann on 09/16 Lisa Yang PA-C Sep 14, 2016 09:53 Jordon Mejia MD September 16, 2016 08:24
[2016-09-14] MEDS ORDERED: PANT40TA3 PO (09:56)
[2016-09-14] MEDS ORDERED: FLOR250C PO (09:58)
--- NOTE | 2016-09-14 10:36 | PD.ORT.PN ---
Subjective Post Op Day #: NA Pain Scale: minimal Subjective Remarks left hand is much better Range of Motion has full AROM of fingers and thumb left hand Objective Vitals Vital Signs Date Time Temp Pulse Resp B/P Pulse Ox O2 Delivery O2 Flow Rate FiO2 09/14/16 08:00 52 09/14/16 08:00 98.5 63 18 150/67 98 09/14/16 04:13 97.9 55 19 125/55 95 09/14/16 00:25 98.2 58 18 129/56 95 09/13/16 22:11 66 09/13/16 19:16 98.1 73 19 128/59 96 Result Diagram: 09/13/16 0458 09/13/16 0458 Objective Remarks Cat bites x2 left hand dorsum are scabbed and minimal swelling and just faint erythema; no drainage or open wounds and no pain with ROM of fingers and thumb Assessment & Plan Assessment and Plan -Patient has improvement on IV antibiotics--will be discharged on PO Cipro and Flagyl -Will call me over weekend for problems, but otherwise see Dr. Mccann on Friday, September 16 -patient understands and is being discharged today Nyasia Collazo MD Sep 14, 2016 10:36
--- NOTE | 2016-09-14 11:05 | MB ---
cc: JULIO KELLEY DATE OF CONSULTATION: 09/13/2016. REASON FOR CONSULTATION: Cat bite left hand. HISTORY OF PRESENT ILLNESS: Naima Horne is a pleasant 76-year-old right-hand dominant female with past medical history significant for hypertension, atrial fibrillation, bilateral venous insufficiency with femoral arterial blockage, right lower extremity DVT, cerebellar ataxia who states that her personal cat who does receive vaccinations bit her left hand over the dorsum on Friday night. She presented to the emergency room on , yesterday 09/12/2016, after no improvement at home with cleaning the hand. She does report improvement overnight on IV antibiotics. She does report some pain over the base of the left thumb which is chronic. She has had bilateral carpal tunnel syndrome. At this time denies any paresthesias. She reports mild pain over the bite over the dorsum of the second metacarpal. No pain over the bite orr over the fourth metacarpal dorsum. The patient has good range of motion of her fingers and hand. She does live alone. ALLERGIES: 1. BACTRIM. 2. PENICILLIN. 3. TETRACYCLINE. 4. VASOTEC. PAST MEDICAL HISTORY: 1. Hypertension. 2. Venous insufficiency. 3. Atrial flutter. 4. DVT. 5. Cerebellar ataxia. PAST SURGICAL HISTORY: 1. Tonsillectomy. 2. Urethral diverticulitis surgery. 3. Cataract surgery. 4. Prior right hand surgery. 5. Left total knee arthroplasty. HOME MEDICATIONS: 1. Clobetasol. 2. Triamcinolone. 3. Prevacid. 4. Celebrex. 5. Metoprolol. 6. Zyrtec. 7. Fish oil. 8. Red yeast rice. 9. Aspirin. 10. Losartan. PHYSICAL EXAMINATION: GENERAL: The patient is alert and oriented. VITAL SIGNS: Stable. Temperature 98.1. The left hand shows two bite orr over the dorsum of the hand; one over the second metacarpal and one over the fourth metacarpal with no drainage. There is no tenderness over the bite over the fourth metacarpal. Mild tenderness palpation over the bite orr over the second metacarpal. The patient has full extension and flexion of the fingers. No evidence of purulence or swelling of the dorsum of the hand. No pain with range of motion of the wrist or MCP joint. Sensation intact in the ulnar distribution. 2+ radial pulse. LABORATORY DATA: White count 1.4, ESR 21, CRP 0.38. IMAGING STUDIES: X-rays of the left hand show chronic left CMC arthritis. No evidence of acute fracture. Mild swelling of the dorsum of the wrist. ASSESSMENT AND PLAN: Naima Horne is a 76-year-old right hand-dominant female with four days status post a cat bite to the dorsum of the left hand who presented for pain and erythema. She does report improvement on the IV antibiotics. The patient was made n.p.o. at midnight for evaluation for possible surgical intervention. At this time I do not feel there is a need for acute surgical intervention. She understands she may require surgical intervention, either in the emergency room for in the operating room. At this time I recommend continued IV antibiotics, consult to infectious disease due to the patient's complex medical history and multiple allergies, continued observation and close monitoring. She will continue elevating the hand. She will soak the hand. If she is discharged, we will follow her closely in the office. She understands that cat bites are very serious and may cause injury to the extensor tendons or joint. At this time, she has improved on IV antibiotics and has excellent range of motion of the hand. MD BREEZY Vaz/LITA /11:15 PM /10:58 AM JV
== END 2016-09-14 11:16 | disposition home or self-care (01) ==
LOC: NEPD 14:59 → NEDA 19:08 → NEPHCDU 21:27
PROVIDERS: ADMIT Internal Medicine; ATTEND Internal Medicine
DX: L03.114 Cellulitis of left upper limb (principal); S61.452A Open bite of left hand, initial encounter; G11.9 Hereditary ataxia, unspecified; I10 Essential (primary) hypertension; N17.9 Acute kidney failure, unspecified; R79.82 Elevated C-reactive protein (CRP); K21.9 Gastro-esophageal reflux disease without esophagitis; I48.91 Unspecified atrial fibrillation; I48.92 Unspecified atrial flutter; Z88.1 Allergy status to other antibiotic agents; Z88.0 Allergy status to penicillin; Z88.8 Allergy status to other drugs, medicaments and biological substances; Z86.718 Personal history of other venous thrombosis and embolism; Z79.82 Long term (current) use of aspirin; Z87.891 Personal history of nicotine dependence; Z96.652 Presence of left artificial knee joint; W55.01XA Bitten by cat, initial encounter
CPT/HCPCS: 73130; 80048; 80053; 81001; 83605; 85025; 85652; 86140; 87040; 96365; 96367; 99285; G0378; J1956; J3370; J7050

== ENCOUNTER 2017-08-18 06:00 | Day surgery (SDC) | payer MEDICARE, OTHER ==
[~2017-08-18] VITALS: Ht 165.1 cm; Wt 76.2 kg
[~2017-08-18 06:00] MED LIST changes: -ACET120S PO; -AMLO5TAB2 PO; -ASPI-110 PO; +ASPI1TAB57 PO; +CIPR-9 PO; -FAMO20TA2 PO; +FLOR250C PO; +METR-1 PO; -MIRA25TA PO; +PANT40TA3 PO; -PREV30CA11 PO
[2017-08-18] MEDS ORDERED: IOHEXOL 350 MG/ML 100 ML BTL (for Cath Lab) OTHER ONE (06:01)
[2017-08-18] MEDS ORDERED: IOHEXOL 350 MG/ML 50 ML BTL (for Cath Lab) OTHER ONE (06:01)
[2017-08-18] MEDS ORDERED: SODIUM CHLORIDE 0.9% FLUSH 10 ML FLUSH IV FLUSH PRN ×2 (06:30)
[2017-08-18] MEDS ORDERED: RANI150T PO (06:48)
[2017-08-18] MEDS ORDERED: zyrtec PO (06:48)
[2017-08-18] MEDS ORDERED: OMEGCAP PO (06:48)
[2017-08-18 06:50] VITALS: BP 159/78; PULSE 52; RESP 18; TEMP 97.9; O2SAT 100
[2017-08-18 07:11] LABS: BICARBONATE 29.8 MEQ/L (21.0-32.0); CALCIUM 9.3 MG/DL (8.5-10.1); CREATININE 1.48 MG/DL (0.50-1.00)
[2017-08-18] MEDS ORDERED: SODIUM CHLOR 0.9% 1000 ML INJ 400 ML IV SCH (08:30)
[2017-08-18] MEDS ORDERED: HEPARIN-NS/PF FLUSH BAG 2,000 ML IV FLUSH ONE (09:55)
[2017-08-18] MEDS ORDERED: HEPARIN SODIUM - IV 10,000 UNITS/10 ML VIAL ONE (09:59)
[2017-08-18] MEDS ORDERED: NITROGLYCERIN INJ 5 ML ONE (09:59)
[2017-08-18] MEDS ORDERED: MIDAZOLAM HCL 2 MG/2 ML VIAL ONE ×2 (09:59→10:43)
[2017-08-18] MEDS ORDERED: ADENOSINE IV SOLN 3 MG/ML 2 ML VIAL ONE (10:34)
[2017-08-18] MEDS ORDERED: CLOPIDOGREL 300 MG TAB ONE (11:11)
[2017-08-18] MEDS ORDERED: SODIUM CHLOR 0.9% 1000 ML INJ 1,000 ML IV SCH (11:11)
[2017-08-18] MEDS ORDERED: PLAV75TA29 PO (11:14)
[2017-08-18] MEDS ORDERED: BACITRACIN OINT 0.9 GM PKT TOP ONE (11:15)
--- NOTE | 2017-08-18 11:17 | CATHPROC ---
Ubi HIS Report Study Information Study Number Admission Scheduled Start Study Start [id number] Aug 18 2017 6:00AM 08/18/2017 Aug 18 2017 9:48AM Spencer Service Cath Endovascular Study Admit Source Facility Department Other [facility] - Quality Review Trainer Physician and Clinical Staff Initial hTomas Wheeler Senior Security Engineer Lynda Gaviria,RN Recorder Marianna Pedroza,RT(R) (BS) Scrub Vimal Grant,RT(R) Procedures Performed Procedure Location (Site) Vessel Name Abdominal Angiogram Abd Aorta (A3) Aorta Angiogram (manual) Fem Art (right) Femoral Art INTEGRATED PROGRAM TEACHER SFA (left) Femoral Art Wire insertion Fem Art (right) Femoral Art Equipment Time [employer]metics Sales Counter Manager Description Size Mfg Part Number Used/Scraped [id number] 10:17 ANGIO-DYNAMICS OMNI FLUSH 65CM CATHETER FR 5 Used *[id number] DBP- CARDIOVASCULAR CATHETER, STEALTH CLASSIC 10:35 [id number] Used SYSTEMS INC. 2.0MM *[id number] CARDIOVASCULAR [id number] 10:32 WIRE, FIRM (VIPER) 335 Used SYSTEMS INC. *[id number] WIRE, GUIDE APPROACH HYDRO [id number] 10:28 COOK/JONELLE 300CM Used ST *[id number] 09:52 CORDIS/ JONELLE RIM SUPER TORQUE CATHETER FR 5 Used *[id number] *[id number] 11:04 DAIG/ST. HUBER MEDICAL ANGIOSEAL, FR6 VIP FR 6 Used *[id number] BALLOON, ADMIRAL EXTREME 5 X [id number] 10:43 [employer]EC [employer] 130CM Used 150 130CM *[id number] BALLOON, ADMIRAL IN.PACT 6 X [id number] 10:55 [employer] 130CM Used 120 130CM *[id number] BALLOON, ADMIRAL IN.PACT 6 X [id number] 10:50 [employer] 130CM Used 150 130CM *[id number] CATHETER, FR5 TRAILBLAZER [id number] 10:30 IN[employer]EC [employer] 135CM Used .035 *[id number] 09:52 MALLINCKRODT SYRINGE, ANGIOMAT 150ML 150ML [id number] Used [id number] 09:52 MEDLINE INDUSTRIES PACK, CCL CUSTOM * Used *[id number] 09:52 MEDLINE PACER PEN, SKIN DUAL W/ RULER * Used *[id number] 09:52 [employer] MEDICAL WIRE, EXCHANGE 260CM 3MMJ 260CM Used *[id number] 09:52 NAMIC MANIFOLD, 4 PORT * Used *[id number] 09:52 NAMIC TUBING, HIGH PRESSURE 48" 48" Used *9159902 09:52 NYCOMED OMNIPAQUE, 300 MG, 150ML 150ML [id number] Used [id number] 09:52 WADDELL MEDICAL BLANKET,WARM AIR CCL * Used *[id number] 09:52 TERUMO MEDICAL SHEATH, FR5 TERUMO (10CM) FR 5 Used *[id number] SHEATH, FR6 PINNACLE [id number] 10:26 TERUMO MEDICAL/JONELLE FR 6 Used DESTINATION 45CM *[id number] WIRE, ANGLE GLIDE STIFF .035 [id number] 09:52 TERUMO MEDICAL/JONELLE 260CM Used 260CM *[id number] Equipment Model, Serial, Lot Number and Expiration Data Description Model Number Serial Number Lot Number Expiration Date ANGIOSEAL, FR6 VIP [id number] 04-17-2018 BALLOON, ADMIRAL IN.PACT 6 X [id number] 03-19-2018 120 130CM BALLOON, ADMIRAL IN.PACT 6 X [id number] 04-08-2020 150 130CM CATHETER, FR5 TRAILBLAZER .035 [id number] 06-28-2019 CATHETER, STEALTH CLASSIC [id number] 05-18-2019 2.0MM WIRE, FIRM (VIPER) 335 [id number] 04-17-2019 WIRE, GUIDE APPROACH HYDRO [id number] 01-14-2020 ST History: Current Medications Medication Dosage/Unit Route Frequency Last Date/Time Taken ASA Beta May History: Allergies Allergy Reaction doxycycline DIARRHHEA,FEVER,VOMITING sulfamethoxazole CENTRAL NERVOUS SYSTEM REACTION trimethoprim CENTRAL NERVOUS SYSTEM REACTION minocycline DIARRHHEA,FEVER,VOMITING penicillin G Rash enalaprilat Cough tigecycline DIARRHHEA,FEVER,VOMITING History: Risk Factors Family History of Hypertension Dyslipidemia Previous OR Previous Heart Failure Premature CAD Yes Yes No No No Prior Valve Prior PCI Prior CABG Surgery No No No Cerebrovascular Peripheral Artery Chronic Lung On Dialysis Diabetes Disease Disease Disease No No Yes No No Labs Hgb (g/dl) Hct (%) WBC (l/cumm) Platelets (thousands) 11.60-17.00 35.00-51.00 4.00-11.00 150.00-450.00 11.2 34.5 8.4 281 BUN (mg/dl) Creatinine (mg/dl) BUN:Creatinine (1:x) 7.00-18.00 0.50-1.30 10.00-20.00 19 1.4 13.6 Na (meq/l) K (meq/l) 136.00-145.00 3.50-5.10 138 3.8 INR (PTT:PT) 0.90-1.10 1 CPK-MB (ng/ML) 0.50-3.60 Not Drawn Medication Medication Total Dose (Bolus/Oral) Medication Total Dosage/Unit 1% XYLOCAINE 20 mL ADENOSINE 360 mcg FENTANYL 150 mcg HEPARIN 5000 units NTG (IC) 400 mcg PLAVIX 600 mg VERSED 3 mg Medications (Bolus/Oral) Medication Time Given Dosage/Unit Administered By Reason VERSED 08/18/2017 10:10:29 AM 1 mg Lynda Gaviria 1 mg VERSED given in lab by Lynda Gaviria RN in Left Wrist via Peripheral IV. FENTANYL 08/18/2017 10:11:39 AM 50 mcg Lynda Gaviria 50 mcg FENTANYL given in lab by Lynda Gaviria RN in Left Wrist via Peripheral IV. 1% XYLOCAINE 08/18/2017 10:17:23 AM 20 mL Thomas Back 20 mL 1% XYLOCAINE given in lab by Thomas Back in Right Groin via Subcutaneous. VERSED 08/18/2017 10:29:34 AM 1 mg Lynda Gaviria 1 mg VERSED given in lab by Lynda Gaviria RN in Left Wrist via Peripheral IV. FENTANYL 08/18/2017 10:30:39 AM 50 mcg Lynda Gaviria 50 mcg FENTANYL given in lab by Lynda Gaviria RN in Left Wrist via Peripheral IV. HEPARIN 08/18/2017 10:31:48 AM 5000 units Lynda Gaviria 5000 units HEPARIN given in lab by Lynda Gaviria RN in Left Wrist via Peripheral IV. ADENOSINE 08/18/2017 10:40:21 AM 180 mcg Vimal Grant 180 mcg ADENOSINE given by Vimal Grant, RT(R) in Right Groin via Intra-arterial. NTG (IC) 08/18/2017 10:41:47 AM 200 mcg Minor, Thomas 200 mcg NTG (IC) given in lab by Thomas Back via Intra-arterial. ADENOSINE 08/18/2017 10:42:23 AM 180 mcg Vimal Grant 180 mcg ADENOSINE given by Vimal Grant, RT(R) in Right Groin via Intra-arterial. NTG (IC) 08/18/2017 10:43:32 AM 200 mcg Thomas Back 200 mcg NTG (IC) given in lab by Thomas Back via Intra-arterial. VERSED 08/18/2017 10:45:19 AM 1 mg Lynda Gaviria 1 mg VERSED given in lab by Lynda Gaviria, REESE in Left Wrist via Peripheral IV. FENTANYL 08/18/2017 10:46:28 AM 50 mcg Lynda Gaviria 50 mcg FENTANYL given in lab by Lynda Gaviria, REESE in Left Wrist via Peripheral IV. PLAVIX 08/18/2017 11:11:48 AM 600 mg Lynda Gaviria 600 mg PLAVIX given in lab by Lynda Gaviria, REESE via Oral. Medication (Drip) Medication Time Given Dosage/Unit Concentration/Unit Diluent (ml) Solutio n IV Solutions 08/18/2017 9:48:29 AM 0 mL (IV) 500 NaCl .9 Patient arrived on IV Solutions in Left Wrist via Peripheral IV. Pump/Drip Flow = 200 ml/hr using NaC l .9. Initial Case Assessment Cardiovascular HR NIBP 64 170/73 Edema Present Skin color Skin None Normal Warm Dry Circulatory - Right Pulses Dorsalis Pedis Femoral d 1 Scale (0,1,2,3,4,d) Circulatory - Left Pulses Dorsalis Pedis Femoral d 1 Scale (0,1,2,3,4,d) Circulatory - Lower Extremities Color Lower Right Color Lower Left Normal Normal Neurological State Oriented to time-place- Alert Moves all extremities person Respiration - General Respiration Rate SpO2 (%) (B/min) 12 96 Chronological Log Time Study Chronological Log 9:47:12 Patient arrived via Bed. 9:47:15 Patient Name, D.O.B, / Armband Verified By R.N. 9:48:17 Consent signed by the physician and the patient and verified by the Quality Review Trainer staff. 9:48:18 Pre-op and post- op instructions given; patient acknowledges understanding of instructions. 9:48:20 Presedation assessment performed by Quality Review Trainer RN. 9:48:23 Patient has been NPO for More than 6Hrs. 9:48:24 Skin Breakdown none per pt 9:48:24 Patient Warmer Placed on the Table. 9:48:27 Alexis Prominences Protected 9:48:28 A # 20 IV was noted in the Wrist (left). Grade = 0 9:48:29 Patient arrived on IV Solutions in Left Wrist via Peripheral IV. Pump/Drip Flow = 200 ml/hr using NaCl .9. 9:48:29 History and physical on the chart or being dictated. Assessment: Initial Case, HR=64 BPM, IEWI=666/73 mmhg, Edema=None, Color=Normal, Skin = Warm, D ry Right Pulses: Иван Ped=d, Femoral=1 Left Pulses: Иван Ped=d, Femoral=1 9:48:30 Lower Right Extremities: Color=Normal Lower Left Extremities: Color=Normal Neurological: State=Alert, Ox3, [place] Respiration: Resp=12 B/min, SpO2=96 % Vitals capture started with the following parameters, Patient=Adult, Interval=5 min, Initial Pr bhkcui=267 mmHg, 9:51:31 Deflation Rate=5 mmHg, Cuff placed on Right Ankle 9:52:52 HR=84 bpm, JNSW=812/73 mmhg, SpO2=96.0 %, Resp=21 B/min, Pain=0, Pavithra=10, Daugherty=2 9:57:14 HR=53 bpm, HLPQ=864/69 mmhg, SpO2=97.0 %, Resp=17 B/min, Pain=0, Pavithra=10, Daugherty=2 10:02:50 HR=53 bpm, TZUC=109/73 mmhg, SpO2=96.0 %, Resp=16 B/min, Pain=0, Pavithra=10, Daugherty=2 10:03:20 Bilateral groins prepped with 2% chlorhexidine, and draped after a 3 minute waiting time. 10:06:50 paged 10:07:11 MD responded 10:07:47 HR=55 bpm, QGVK=201/69 mmhg, SpO2=95.0 %, Resp=19 B/min, Pain=0, Pavithra=10, Daugherty=2 10:09:45 Pressure channel 1 zeroed. 10:10:29 1 mg VERSED given in lab by Lynda Gaviria, REESE in Left Wrist via Peripheral IV. 10:11:04 MD arrived 10:11:39 50 mcg FENTANYL given in lab by Lynda Gaviria, REESE in Left Wrist via Peripheral IV. 10:12:17 HR=54 bpm, PEIB=784/72 mmhg, SpO2=94.0 %, Resp=19 B/min, Pain=0, Pavithra=10, Daugherty=2 10:14:54 Reference ECG taken Time Out. Correct patient, correct procedure, correct physician, power injector loaded with con trast with surgical team 10:17:04 present. Time Out Concurred by MD and individual staff in procedure. 10:17:13 Case Start 10:17:23 20 mL 1% XYLOCAINE given in lab by Thomas Back in Right Groin via Subcutaneous. 10:17:55 HR=54 bpm, OUXL=176/53 mmhg, SpO2=98.0 %, Resp=19 B/min, Pain=0, Pavithra=10, Daugherty=2 10:18:45 Access site was Right Femoral Artery. 10:18:49 A SHEATH, FR5 TERUMO (10CM) FR 5 was advanced into the Fem Art (right) using the Percutaneo us technique. 10:22:15 HR=49 bpm, EPAW=338/48 mmhg, OxP8=641.0 %, Resp=17 B/min, Pain=0, Pavithra=10, Daugherty=2 A PIGTAIL ANG. INFINITI CATHETER FR 5 was advanced over a wire. OMNIPAQUE, 300 MG, 150ML 150ML was used 10:22:26 for injections. 10:22:51 Through a PIGTAIL ANG. INFINITI CATHETER FR 5, The Abdominal Aorta was injected with 10 cc' s of contrast. Through a RIM SUPER TORQUE CATHETER FR 5, The Femoral Run-off was injected with contrast. Injec tions continued 10:25:07 down the leg. Recorded Pressure: Ao, HR=52, Condition=Condition 1 10:26:32 (Aorta) Ao 142/53/85 10:27:14 HR=50 bpm, DRAY=274/60 mmhg, EiP8=267.0 %, Resp=18 B/min, Pain=0, Pavithra=10, Daugherty=2 10:28:52 A WIRE, ANGLE GLIDE STIFF .035 260CM 260CM was inserted via Fem Art (right). 10:29:34 1 mg VERSED given in lab by Lynda Gaviria RN in Left Wrist via Peripheral IV. A SHEATH, FR6 PINNACLE DESTINATION 45CM FR 6 was exchanged in the Fem Art (right). This was nec essary in 10:29:43 order to accomodate a larger catheter. 10:30:39 50 mcg FENTANYL given in lab by Lynda Gaviria RN in Left Wrist via Peripheral IV. A CATHETER, FR5 TRAILBLAZER .035 135CM was advanced over a wire. OMNIPAQUE, 300 MG, 150ML 150ML was 10:31:19 used for injections. 10:31:48 5000 units HEPARIN given in lab by Lynda Gaviria RN in Left Wrist via Peripheral IV. 10:32:13 HR=52 bpm, DNAG=118/62 mmhg, SpO2=99.0 %, Resp=14 B/min, Pain=0, Pavithra=10, Daugherty=2 10:33:05 A WIRE, FIRM (VIPER) 335 was inserted via Fem Art (right). 10:34:45 Catheter was removed 10:36:46 A CSI atherectomy catheter was advanced over a wire. contrast was used for injections. 10:37:17 HR=51 bpm, HEFZ=453/48 mmhg, ZkX8=556.0 %, Resp=14 B/min, Pain=0, Pavithra=10, Daugherty=2 10:39:29 CSI atherectomy in progress 10:39:50 CSI atherectomy in progress 10:40:21 180 mcg ADENOSINE given by Vimal Grant, RT(R) in Right Groin via Intra-arterial. 10:40:51 CSI atherectomy in progress 10:40:55 Activated Clotting Time Drawn 10:41:47 200 mcg NTG (IC) given in lab by Thomas Back via Intra-arterial. 10:42:00 Catheter was removed 10:42:23 180 mcg ADENOSINE given by Vimal Grant, RT(R) in Right Groin via Intra-arterial. A BALLOON, ADMIRAL EXTREME 5 X 150 130CM 130CM was inserted over WIRE, FIRM (VIPER) 335 via the Fem Art 10:42:44 (right). 10:42:53 HR=57 bpm, AIQW=375/52 mmhg, KlN3=393.0 %, Resp=15 B/min, Pain=0, Pavithra=10, Daugherty=2 10:43:32 200 mcg NTG (IC) given in lab by Thomas Back via Intra-arterial. 10:43:32 In the SFA (left) a BALLOON, ADMIRAL EXTREME 5 X 150 130CM 130CM was inflated to 20 atms fo r 60 seconds. 10:45:00 In the SFA (left) a BALLOON, ADMIRAL EXTREME 5 X 150 130CM 130CM was inflated to 20 atms fo r 60 seconds. 10:45:19 1 mg VERSED given in lab by Lynda Gaviria RN in Left Wrist via Peripheral IV. 10:45:42 In the SFA (left) a BALLOON, ADMIRAL EXTREME 5 X 150 130CM 130CM was inflated to 20 atms fo r 60 seconds. 10:46:28 50 mcg FENTANYL given in lab by Lynda Gaviria RN in Left Wrist via Peripheral IV. 10:46:46 ACT (Normal Range 90-180) = 265 10:47:15 HR=53 bpm, OWTP=852/61 mmhg, SqW0=919.0 %, Resp=16 B/min, Pain=0, Pavithra=10, Daugherty=2 A CATHETER, FR5 TRAILBLAZER .035 135CM was advanced over a wire. OMNIPAQUE, 300 MG, 150ML 150ML was 10:47:56 used for injections. 10:48:14 A WIRE, EXCHANGE 260CM 3MMJ 260CM was inserted via Fem Art (right). 10:48:30 Catheter was removed w/o difficulty A BALLOON, ADMIRAL IN.PACT 6 X 150 130CM 130CM was inserted over WIRE, EXCHANGE 260CM 3MMJ 260C M via 10:50:03 the Fem Art (right). 10:50:33 In the SFA (left) a BALLOON, ADMIRAL IN.PACT 6 X 150 130CM 130CM was inflated to 8 atms for 180 seconds. 10:52:18 HR=58 bpm, TWLJ=726/41 mmhg, SpO2=99.0 %, Resp=15 B/min, Pain=0, Pavithra=10, Daugherty=2 10:54:54 Balloon Removed A BALLOON, ADMIRAL IN.PACT 6 X 120 130CM 130CM was inserted over WIRE, EXCHANGE 260CM 3MMJ 260C M via 10:55:44 the Fem Art (left). 10:56:31 In the SFA (left) a BALLOON, ADMIRAL IN.PACT 6 X 120 130CM 130CM was inflated to 8 atms for 180 seconds. 10:57:13 HR=51 bpm, KOUP=170/59 mmhg, GsH9=056.0 %, Resp=14 B/min, Pain=0, Pavithra=10, Daugherty=2 10:59:07 In the SFA (left) a BALLOON, ADMIRAL IN.PACT 6 X 120 130CM 130CM was inflated to 8 atms for 180 seconds. 11:01:02 Balloon Removed 11:02:16 HR=55 bpm, KXKO=561/62 mmhg, XwT9=252.0 %, Resp=17 B/min, Pain=0, Pavithra=10, Daugherty=2 11:02:54 Wire removed 11:03:35 Fem Art (right) angiogram, manually injected and followed down the leg 11:04:14 ANGIOSEAL, FR6 VIP FR 6 placement in the Fem Art (right) 11:05:09 Case End 11:05:10 DOCU called. Spoke to [place]. 11:05:55 Catheter(s) removed without difficulty 11:05:59 No case complications noted. 11:06:03 Bedside Report will be given. 11:06:04 Implantable Device card placed in patient's chart. 11:08:00 HR=51 bpm, EYOK=361/67 mmhg, QaI9=564.0 %, Resp=13 B/min, Pain=0, Pavithra=10, Daugherty=2 11:09:09 Sterile dressing applied to site 11:11:48 600 mg PLAVIX given in lab by Lynda Gaviria RN via Oral. 11:12:14 HR=56 bpm, ZRRO=911/61 mmhg, GiT4=654.0 %, Resp=15 B/min, Pain=0, Pavithra=10, Daugherty=2 11:14:46 Vitals capture stopped. 11:14:53 Patient moved to [facility] Study - Contrast Media Used In Study Contrast Total Opened (mL) Total Used (mL) Total Wasted (mL) Omnipaque 130 130 0 End Study - Maximum Contrast Load Max Contrast Load (mL) 272.1 End Study - Radiation Exposure Fluoro Time (minutes) 8.7 End Study - Sheaths Sheaths Pulled By Sheath Hold Time (min) Minor, Thomas End Study - Patient Disposition Complications Transferred To Interventional Outcome No Quality Review Trainer Holding successful
--- NOTE | 2017-08-18 11:52 | MA ---
cc: Thomas Back MD DATE: 08/18/2017 Peripheral angiography with intervention. PROCEDURE PERFORMED: 1. Fluoroscopy with interpretation. 2. Descending aortography. 3. Bilateral lower extremity peripheral angiography with first, second and third order visualization interpretation. 4. Orbital rotational atherectomy and balloon angioplasty with drug-coated balloon on the left superficial femoral artery. METHOD: The risks, benefits and alternatives discussed with the patient, the patient understood and consented to the procedure. DESCRIPTION OF PROCEDURE: The patient was brought into the catheterization lab, placed on the catheterization table. The right groin prepped and draped in the usual sterile fashion. The right groin was anesthetized with 2% lidocaine. The right common femoral artery was cannulated. A 6-Anguillan, 7 cm sheath was placed without difficulty. DESCENDING AORTOGRAPHY: Descending aortography was performed through an anterior posterior view using a 24 mL contrast injection with good opacification. Descending aortography revealed mild infrarenal descending aortic atherosclerosis. BILATERAL LOWER EXTREMITY PERIPHERAL ANGIOGRAPHY: 1. Left common internal and external iliac arteries have mild luminal irregularities. The left common femoral artery and profunda artery is widely patent. The left superficial femoral artery has 80-90% stenosis throughout the proximal mid segment. The popliteal artery has mild luminal irregularities. There is severe infrapopliteal disease. Anterior tibial and posterior tibial arteries are occluded. Peroneal vessel is patent with moderate diffuse disease and collateralizes distally. 2. The common internal and external iliac arteries on the right are widely patent. The right common femoral artery and profunda arteries are patent. Right superficial femoral artery has a 90% stenosis in the mid segment. The popliteal artery is widely patent. There is moderate infrapopliteal disease on the right. Peroneal is patent. Anterior tibial and posterior tibials are not well visualized, but appeared to be occluded. PERCUTANEOUS INTERVENTION: A 6-Anguillan 45 cm [employer] [place] sheath was advanced up and over the arch. A 0.014 inch, 300 cm hydro S2 wire was then navigated down the distal peroneal vessel and exchanged through a TrailBlazer catheter for a 0.014, 335 cm ViperWire. A 2.0 mm CSI atherectomy catheter was then advanced to the superficial femoral artery. Orbital rotational atherectomy was performed to the entire left superficial femoral artery. A 5.0 x 150 mm Foap ABtronic balloon was then deployed on 3 sequential inflations through the entire length of the superficial femoral artery. A 6.0 x 150 mm drug-coated balloon was then deployed in the midsegment and a 6.0 x 120 mm drug-coated balloon was advanced to the proximal segment and deployed for prolonged inflation. Repeat angiography showed MARJORIE 3 flow, no residual stenosis. The sheath was then removed and a 6-Anguillan Angio-Seal device deployed with good hemostasis. CONCLUSIONS: 1. 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 2. Successful orbital rotational atherectomy and balloon angioplasty of the left superficial femoral artery with a drug-coated balloon. PLAN: The patient will be initiated on Plavix. The patient was intolerant to statin therapies. We will monitor closely for any procedural complications. Hopefully, anticipate discharge later today. When she makes a full recovery, we will bring her back for staged attempted intervention of the right superficial femoral artery. Thomas Back MD SELENE/DL , 11:18 AM , 11:50 AM
[2017-08-19] MEDS ORDERED: CLOPIDOGREL 75 MG TAB PO SCH (09:00)
[2017-08-19] MEDS ORDERED: CETI-1 PO (11:48)
== END 2017-08-18 16:11 | disposition home or self-care (01) ==
LOC: HDOC 06:00 → HDIC 06:01 → HDOC 16:11
PROVIDERS: ATTEND Internal Medicine
DX: I70.212 Atherosclerosis of native arteries of extremities with intermittent claudication, left leg (principal); I48.92 Unspecified atrial flutter; I10 Essential (primary) hypertension
CPT/HCPCS: 37225; 75625; 75716; 80048; 85002; 86850; 86900; 86901; 99152; 99153; C1714; C1725; C1751; C1769; C1893; C2623; J0153; J1644; J2250; J3010; J7030; Q9967